=== PATIENT | female | born 1980 | race Caucasian/White ===

== ENCOUNTER → 2018-12-26 09:35 | Outpatient (CLI) | payer BC ==
[2018-12-26 10:04] LABS: BASOPHILS 0.5 % (0-2); EOSINOPHILS 4.2 % (0-7); HEMATOCRIT 41.7 % (36.0-48.0); HEMOGLOBIN 13.9 g/dL (12-16); IMMATURE GRANULOCYTES 0.3 % (0-5); LYMPHOCYTES 29.7 % (15-50); MCH 26.9 pg (26.0-34.0); MCHC 33.3 g/dL (31.0-37.0); MCV 80.8 fL (80.0-100.0); MEAN PLATELET VOLUME 10.6 fL (7.4-10.4); MONOCYTES 5.3 % (2-11); RBC 5.16 10x6/uL (4.00-5.40); RDW 14.2 % (11.5-14.5); WBC 8.6 10x3/uL (4.8-10.8)
[2018-12-26 10:07] LABS: PLATELET COUNT 232 10x3/uL (130-400)
[2018-12-26 10:26] LABS: ALBUMIN 3.4 g/dL (3.4-5.0); ANION GAP 13.7 mmol/L (8-16); BILIRUBIN - TOTAL 0.45 mg/dL (0.2-1.3); CALCIUM 8.3 mg/dL (8.5-10.1); CARBON DIOXIDE 27.2 mmol/L (21.0-32.0); CHOL - HDL RATIO 7.1 ratio (2.3-4.1); LDL-HDL RATIO 3.4 ratio (1.5-3.5); POTASSIUM - SERUM 3.9 mmol/L (3.5-5.1); THYROID STIMULATING HORMONE 1.75 uIU/mL (0.36-3.74)
== END | disposition home or self-care (01) ==
LOC: D.LAB 09:35
PROVIDERS: Emergency Medicine
DX: I10 Essential (primary) hypertension (principal)

== ENCOUNTER 2019-06-26 10:32 | Emergency (ER) | payer BC ==
[~2019-06-26] VITALS: Ht 154.9 cm; Wt 93.2 kg
[2019-06-26 10:34] VITALS: BP 142/85; Ht 154.9 cm; Wt 93.2 kg
[2019-06-26] MEDS ORDERED: IMITREX6 MG/0.51 SQ (11:40)
[2019-06-26] MEDS ORDERED: LISINOPRIL10 MG PO (21:18)
[2019-06-26] MEDS ORDERED: COREG12.5 MG PO (21:18)
[2019-06-26] MEDS ORDERED: DICLOFENAC SODI50 MG PO (21:18)
[2019-06-26] MEDS ORDERED: HYDROCHLOROTHIA25 MG PO (21:18)
[2019-06-26] MEDS ORDERED: GLUCOTROL 5 MG T5 MG PO (21:18)
[2019-06-26] MEDS ORDERED: HYDROXYZINE HCL10 MG PO (21:19)
[2019-06-26] MEDS ORDERED: OMEPRAZOLE20 M1 PO (21:19)
== END 2019-06-26 12:12 | disposition home or self-care (01) ==
LOC: D.ER 10:32
DX: R51 Headache (principal)

== ENCOUNTER 2019-06-26 20:43 | Emergency (ER) | payer BC ==
[~2019-06-26] VITALS: Ht 154.9 cm; Wt 93.2 kg
[~2019-06-26 20:43] MED LIST: IMITREX6 MG/0.51 SQ
[2019-06-26 21:16] VITALS: Ht 154.9 cm; Wt 93.2 kg
[2019-06-26] MEDS ORDERED: GLUCOTROL 5 MG T5 MG PO (21:18)
[2019-06-26] MEDS ORDERED: COREG12.5 MG PO (21:18)
[2019-06-26] MEDS ORDERED: DICLOFENAC SODI50 MG PO (21:18)
[2019-06-26] MEDS ORDERED: LISINOPRIL10 MG PO (21:18)
[2019-06-26] MEDS ORDERED: HYDROCHLOROTHIA25 MG PO (21:18)
[2019-06-26] MEDS ORDERED: HYDROXYZINE HCL10 MG PO (21:19)
[2019-06-26] MEDS ORDERED: OMEPRAZOLE20 M1 PO (21:19)
[2019-06-26 23:46] VITALS: BP 121/80
== END 2019-06-26 23:46 | disposition home or self-care (01) ==
LOC: D.ER 20:43
DX: G44.009 Cluster headache syndrome, unspecified, not intractable (principal)

== ENCOUNTER → 2019-06-29 17:03 | Outpatient (CLI) | payer BC ==
[2019-06-26 21:16] VITALS: BMI 38.8
[~2019-06-29 17:03] MED LIST changes: +COREG12.5 MG PO; +DICLOFENAC SODI50 MG PO; +GLUCOTROL 5 MG T5 MG PO; +HYDROCHLOROTHIA25 MG PO; +HYDROXYZINE HCL10 MG PO; +LISINOPRIL10 MG PO; +OMEPRAZOLE20 M1 PO
[2019-06-29 18:03] LABS: ALBUMIN 3.7 g/dL (3.4-5.0); ANION GAP 13.7 mmol/L (8-16); BILIRUBIN - TOTAL 0.38 mg/dL (0.2-1.3); CARBON DIOXIDE 29.1 mmol/L (21.0-32.0); CREATININE - SERUM 1.2 mg/dL (0.6-1.3); POTASSIUM - SERUM 3.8 mmol/L (3.5-5.1); PROTEIN - SERUM 7.4 g/dL (6.4-8.2)
== END | disposition home or self-care (01) ==
LOC: D.LAB 17:03
PROVIDERS: ATTEND Emergency Medicine
DX: E11.65 Type 2 diabetes mellitus with hyperglycemia (principal)

== ENCOUNTER 2020-06-27 10:32 | Emergency (ER) | payer BC ==
[~2020-06-27] VITALS: Ht 154.9 cm; Wt 97.7 kg
[2020-06-27 10:38] VITALS: BP 117/49; Ht 154.9 cm; Wt 97.7 kg
[2020-06-27] MEDS ORDERED: ASCORBIC ACID500 MG PO (10:43)
[2020-06-27] MEDS ORDERED: MAG-OX 400 MG400 MG PO (10:43)
[2020-06-27] MEDS ORDERED: MELATONIN10 M1 PO (10:43)
[2020-06-27] MEDS ORDERED: ALEVE220 MG PO (10:43)
[2020-06-27] MEDS ORDERED: VITAMIN D 5000 (10:43)
[2020-06-27 11:55] LABS: BASOPHILS 0.1 % (0-2); HEMATOCRIT 39.9 % (36.0-48.0); HEMOGLOBIN 13.2 g/dL (12-16); IMMATURE GRANULOCYTES 0.3 % (0-5); LYMPHOCYTES 23.6 % (15-50); MCH 26.9 pg (26.0-34.0); MCHC 33.1 g/dL (31.0-37.0); MCV 81.3 fL (80.0-100.0); MEAN PLATELET VOLUME 9.8 fL (7.4-10.4); MONOCYTES 6.6 % (2-11); NEUTROPHILS 66.4 % (40-80); PLATELET COUNT 242 10x3/uL (130-400); RBC 4.91 10x6/uL (4.00-5.40); RDW 14.6 % (11.5-14.5); WBC 8.7 10x3/uL (4.8-10.8)
[2020-06-27 12:09] LABS: ANION GAP 11.4 mmol/L (8-16); CALCIUM 8.5 mg/dL (8.5-10.1); CARBON DIOXIDE 29.8 mmol/L (21.0-32.0); CREATININE - SERUM 1.2 mg/dL (0.6-1.3); POTASSIUM - SERUM 3.2 mmol/L (3.5-5.1)
[2020-06-27 12:13] LABS: APTT 29.4 SECONDS (22.8-39.4); PROTIME 13.1 SECONDS (11.6-15.0)
[2020-06-27 12:17] LABS: ALBUMIN 3.6 g/dL (3.4-5.0); BILIRUBIN - TOTAL 0.41 mg/dL (0.2-1.3); PROTEIN - SERUM 7.1 g/dL (6.4-8.2)
[2020-06-27 12:18] LABS: HCG SERUM NEGATIVE (NEGATIVE)
[2020-06-27] MEDS ORDERED: VIBRAMYCIN 100100 MG PO (12:35)
[2020-06-27] MEDS ORDERED: CLEOCIN HCL300 MG PO (12:35)
[2020-06-27] MEDS ORDERED: ZOFRAN ODT4 MG/UDTAB PO (12:41)
== END 2020-06-27 13:14 | disposition home or self-care (01) ==
LOC: D.ER 10:32
PROVIDERS: Emergency Medicine
DX: L03.115 Cellulitis of right lower limb (principal); E11.22 Type 2 diabetes mellitus with diabetic chronic kidney disease; I12.9 Hypertensive chronic kidney disease with stage 1 through stage 4 chronic kidney disease, or unspecified chronic kidney disease; N18.9 Chronic kidney disease, unspecified; E11.65 Type 2 diabetes mellitus with hyperglycemia; E87.6 Hypokalemia; Z79.84 Long term (current) use of oral hypoglycemic drugs